=== PATIENT | female | born 1955 | race Caucasian/White ===

== ENCOUNTER 2021-12-05 16:54 | Emergency (ER) | payer OTHER, SELFPAY ==
--- NOTE | ~2021-12-05 | XR_ITS ---
XR foot RT min 3V DATE: 12/05/2021 17:16 INDICATION: Dropped board on distal metatarsal area. Generalized pain and bruising. TECHNIQUE: 4 views COMPARISON: None FINDINGS: There is diffuse osteopenia. There is prominent plantar and particularly prominent posterior calcaneal enthesopathy. Osteoarthritic changes noted at the tarsal and particularly tarsometatarsal joints. There is hallux valgus and bunion deformity. There is mild osteoarthritis at the first metatarsophala ngeal joint. No recent fracture or dislocation, periosteal reaction or bone destruction is evident. IMPRESSION: No recent fracture or dislocation Osteopenia Hallux valgus and bunion deformity Polyarticular osteoarthritis Prominent plantar and particularly prominent posterior calcaneal enthesopathy Reviewed, dictated and finalized at location A. [employer]
--- NOTE | 2021-12-05 17:26 | ED.LOWEXIN ---
HPI - Extremity Injury (Lower) General Chief Complaint: Extremity Injury, Lower Stated Complaint: right foot injury Time Seen by Provider: 12/05/21 17:26 Source: patient History of Present Illness HPI Narrative: PATIENT PRESENTS WITH RIGHT FOOT PAIN . 7 DAYS AGO SHE DROPPED A CUTTING BOARED ONTO HER FOOT. BRUISING IN VARIOUS STAGES OF HEALING. PAIN WITH AMBULATION. NO DEFORMITY. Related Data Home Medications Medication Instructions Recorded Confirmed bupropion HCl 300 mg PO DAILY 12/05/21 12/05/21 lisinopril 5 mg PO DAILY 12/05/21 12/05/21 metoprolol tartrate 50 mg PO DAILY 12/05/21 12/05/21 triamterene-hydrochlorothiazid 37.5 cap PO DAILY 12/05/21 12/05/21 Allergies Allergy/AdvReac Type Severity Reaction Status Date / Time bee pollen Allergy Unknown Verified 07/14/17 12:44 No Known Allergies Allergy Unverified 11/05/13 16:30 Review of Systems Review of Systems: CONSTITUTIONAL: Denies fever, chills, or sweats. EYES: Denies visual changes, redness, or discharge. ENT: Denies rhinorrhea, congestion, sore throat, or otalgia. CARDIOVASCULAR: Denies chest pain, palpitations, or edema. RESPIRATORY: Denies cough or dyspnea. GASTROINTESTINAL: Denies abdominal pain, nausea, vomiting, or diarrhea. GENITOURINARY: Denies dysuria or hematuria. SKIN: Denies rash or itching. MUSCULOSKELETAL: Denies back pain, joint pain, or myalgia. NEUROLOGIC: Denies headache, numbness, or weakness. PSYCHIATRIC: Denies anxiety or depression. [facility] Family History Family History (Updated 07/14/17 @ 12:44 by DOCTOR UNKNOWN) Other Family history of arthritis Family history of malignant neoplasm of breast in first degree relative Social History Social History Smoking status: Current every day smoker Comments At time of signature, agree with nursing past medical, surgical, social and family history. There is no relevant family history pertinent to the presenting complaint Exam Narrative: GENERAL: Well-appearing, well-nourished, and in no acute distress. HEAD: Normocephalic, atraumatic. EYES: PERRLA and EOMI. ENT: Nares clear, no rhinorrhea or epistaxis. Mucous membranes moist. NECK: Supple. CHEST: Clear to auscultation. No respiratory distress. HEART: Regular rate and rhythm. No murmur heard. Normal peripheral pulses. ABDOMEN: Soft, nontender, nondistended, normal active bowel sounds. EXTREMITIES: Normal range of motion. No edema. SKIN INTACT. NORMAL DP PULSE, NORMAL CAP REFILL. NORMAL SENSATION. Bruising to 5 toes no deformity no open areas noted SKIN: Warm, dry, no rash. NEURO: No focal deficits. Alert and oriented x3. [place] Coma Scale Eye Opening: Spontaneous 4 [place] Coma Scale Motor: Obeys Commands 6 [place] Coma Scale Verbal: Oriented 5 [place] Coma Scale Total 15 Course Course Level of Care: Express Care Visit Vital Signs Vital signs: Vital Signs Temperature 37.3 C 12/05/21 17:33 Pulse Rate 61 12/05/21 17:33 Respiratory Rate 14 12/05/21 17:33 Blood Pressure 135/88 12/05/21 17:33 Pulse Oximetry 100 12/05/21 17:33 Temperature 37.3 C 12/05/21 17:33 Pulse Rate 61 12/05/21 17:33 Respiratory Rate 14 12/05/21 17:33 Blood Pressure 135/88 12/05/21 17:33 Pulse Oximetry 100 12/05/21 17:33 MDM - Extremity Injury (Lower) Differential Diagnosis Differential diagnosis: Likely ankle sprain and strain, acute internal derangement of knee, fracture of femur, fracture of hip, puncture wound of foot, fracture of toe and ankle fracture Lab Data Lab results narrative: MPRESSION: No recent fracture or dislocation Osteopenia Hallux valgus and bunion deformity Polyarticular osteoarthritis Prominent plantar and particularly prominent posterior calcaneal enthesopathy Critical Care Time Critical Care Time Critical Care Time: No Discharge Plan Discharge Clinical Impression: Foot contusion, Osteoarthritis Patient Disposition: Home, Self-Care Condition: Stable Instruction
[2021-12-05 17:33] VITALS: BP 135/88; PULSE 61; RESP 14; TEMP 37.3; O2SAT 100
== END 2021-12-05 17:44 | disposition home or self-care (01) ==
PROVIDERS: Emergency Provider Nurse Practitioner Family
DX: S90.31XA Contusion of right foot, initial encounter (principal); W20.8XXA Other cause of strike by thrown, projected or falling object, initial encounter; M19.071 Primary osteoarthritis, right ankle and foot; F17.200 Nicotine dependence, unspecified, uncomplicated; E78.00 Pure hypercholesterolemia, unspecified; I10 Essential (primary) hypertension; F41.9 Anxiety disorder, unspecified; F32.A Depression, unspecified
CPT/HCPCS: 73630; 99203; G0463